=== PATIENT | male | born 1945 | race Caucasian/White ===

== ENCOUNTER 2018-11-19 15:54 | Emergency (ER) | payer MEDICARE, BC ==
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
[2018-11-19] MEDS: Thiamine 100 MG in Sodium Chloride 0.9% 100 ML IV ONE (16:33)
[2018-11-19] MEDS: Sodium Chloride 0.9% 1,000 ML IV ONE (16:33)
[2018-11-19] MEDS: Sodium Chloride 0.9% 10 ML Syringe FLUSH PRN (16:34)
[2018-11-19] MEDS: LORazepam 2 MG/ML SDV IVPUSH ONE ×2 (16:34→18:30)
[2018-11-19 16:39] LABS: CHLORIDE,CL 104 mmol/L (98-107); SODIUM,NA 141 mmol/L (136-145)
[2018-11-19] MEDS: diphenhydrAMINE 50 MG/ML SDV IVPUSH ONE (18:30)
[2018-11-19] MEDS: Haloperidol Lactate 5 MG/ML SDV IVPUSH ONE (21:02)
[2018-11-19 21:08] VITALS: BP 108/61
== END 2018-11-19 20:50 ==
LOC: LL.ED 15:54
DX: F32.9 Major depressive disorder, single episode, unspecified (principal); R56.9 Unspecified convulsions; F10.229 Alcohol dependence with intoxication, unspecified; Y90.0 Blood alcohol level of less than 20 mg/100 ml; J44.9 Chronic obstructive pulmonary disease, unspecified; E11.9 Type 2 diabetes mellitus without complications; Z91.030 Bee allergy status; Z79.82 Long term (current) use of aspirin; Z79.899 Other long term (current) drug therapy
CPT/HCPCS: 36415; 80053; 80305; 81001; 84484; 85025; 93005; 96361; 96365; 96375; 96376; 99285; G0480; J1200; J2060; J3411; J7030; J7050